=== PATIENT | female | born 1930 | race Caucasian/White ===

== ENCOUNTER → 2016-04-05 | Outpatient (CLI) | payer MEDICARE, BC ==
--- NOTE | 2016-04-05 19:46 | XCELERA REPORT ---
[address] [address] Transthoracic Echocardiogram Report Name: CHRISTIANO PAL Age: 85 yrs Gender: Female : 1930 Patient Status: Outpatient Patient Location: Study Date: 04/05/2016 01:22 PM Height: 62 in Weight: 149 lb BSA: 1.7 m2 Reason For Study: DYSPNEA Ordering Physician: JANAE MONTERO Performed By: William Paulson Interpretation Summary LVEF is >60%, but also has stage I LV diastolic dysfunctioin due to mild LV hypertrophy , with incomplete segmental wall motion abnormalities especially abnormal IVS motion due to conduction abnmormality ,and hypokinesis of the inferoseptal and inferior wall. No LV enlargement. Mild AV sclerosis with trace AR and no LV enlargement.No . No MS, no MVP, trace MR with mild LA enlargement. RVSP is slightly elevated, mild pulm hypertension. MMode/2D Measurements \T\ Calculations RVDd: 2.7 cm LVIDd: 4.8 cm FS: 31.2 % Ao root diam: 2.6 cm IVSd: 1.2 cm LVIDs: 3.3 cm EDV(Teich): 109.2 ml LVPWd: 1.2 cm ESV(Teich): 44.9 ml Ao root area: 5.5 cm2 EF(Teich): 58.8 % LA dimension: 4.2 cm Doppler Measurements \T\ Calculations MV E max duarte: MV P1/2t max duarte: Ao V2 max: AI max duarte: 70.2 cm/sec 70.2 cm/sec 145.1 cm/sec 198.8 cm/sec MV A max duarte: MV P1/2t: 65.5 msec Ao max PG: AI max P.1 cm/sec 8.4 mmHg 15.8 mmHg MV E/A: 0.76 MVA(P1/2t): 3.4 cm2 AI dec slope: MV dec slope: 314.0 cm/sec2 90.5 cm/sec2 MV dec time: AI P1/2t: 0.21 sec 643.2 msec LV V1 max PG: PA V2 max: PI end-d duarte: TR max duarte: 6.7 mmHg 99.3 cm/sec 92.3 cm/sec 287.8 cm/sec LV V1 max: PA max P.9 mmHg TR max P.0 cm/sec 33.1 mmHg RVSP(TR): 43.1 mmHg RAP systole: 10.0 mmHg Left Ventricle The left ventricle is normal in size. There is mild concentric left ventricular hypertrophy. The left ventricular ejection fraction is within normal limits. LV EF is 60%. Doppler measurements suggest impaired left ventricular relaxation, which is associated with grade I/IV or mild diastolic dysfunction. Septal motion is consistent with conduction abnormality. There is no thrombus. Right Ventricle The right ventricle is not well visualized secondary to technical limitations. Atria Right atrium not well visualized secondary to technical limitations. The left atrium is mildly dilated. The interatrial septum is intact with no evidence for an atrial septal defect. Mitral Valve The mitral valve is normal in structure and function. There is no evidence of mitral valve prolapse. There is no mitral valve stenosis. There is a trace to mild amount of mitral regurgitation. Aortic Valve The aortic valve is normal in structure and functions normally. There is no aortic valvular vegetation. There is no aortic valve stenosis. There is a trace amount of aortic regurgitation. Tricuspid Valve The tricuspid is normal in structure and function. There is no tricuspid valve prolapse. There is no tricuspid stenosis. There is a trace or physiologic amount of tricuspid regurgitation. Right ventricular systolic pressure is estimated to be elevated at 30-40mmHg. Pulmonic Valve The pulmonic valve is not well visualized. There is a trace or physiologic amount of pulmonic regurgitation. Great Vessels The aortic root is normal size. Effusions Small pericardial effusion. I WMSI = 1.81 % Normal = 56 Segments Size X - Cannot 2 - 4 - 1-2 small Interpret 1 - Normal Hypokinetic 3 - AkineticDyskinetic 3-5 moderate 5 - 6-14 large Aneurysmal 15-16 diffuse : JANAE MONTERO > Joshua Bear
== END ==
LOC: SP 13:11
PROVIDERS: ATTEND Internal Medicine Pulmonary Disease
DX: R06.00 Dyspnea, unspecified (principal)
CPT/HCPCS: 93306

== ENCOUNTER 2016-04-18 13:59 | Emergency (ER) | payer MEDICARE, BC ==
--- NOTE | 2016-04-18 14:28 | ER Document Report ---
ED Medical Screen (RME) - General Stated Complaint: LEFT SIDE PAIN Time seen by provider: 14:25 Mode of Arrival: Ambulatory Information source: Patient, Relative TRAVEL OUTSIDE OF THE [place] IN LAST 30 DAYS: No - HPI Patient complains to provider of: POSSIBLE LEFT ABD MASS Onset: Just prior to arrival Onset/Duration: Intermittent Context: SENT TO ER BY PCP FOR POSSIBLE LEFT ABD MASS. INTERMITTENT FOR ONE MONTH, WORSE LAST 2-3 DAYS Quality of pain: Achy Severity: Moderate Pain Level: 3 Associated Symptoms: Abdominal pain, Chills, Fever. denies: Diarrhea, Nausea, Vomiting Exacerbated by: Denies Relieved by: Denies Similar symptoms previously: No Recently seen / treated by doctor: Yes - Related Data Smoking: Non-smoker Frequency of alcohol use: None Drug Abuse: None Pertinent History: KIDNEY DISEASE HTN Allergies/Adverse Reactions: acetaminophen [From Tylenol] Allergy (Verified 04/18/16 14:23) prednisone [Prednisone] Allergy (Verified 04/18/16 14:23) Dczokrm-Bql-Sgw Reductase Inhibitor Allergy (Verified 04/18/16 14:23) aspirin [Aspirin] Adverse Reaction (Verified 04/18/16 14:23) ibuprofen Adverse Reaction (Verified 04/18/16 14:23) Past Medical History - Past Medical History Cardiac Medical History: Reports: Hx Hypercholesterolemia, Hx Hypertension Denies: Hx Heart Attack Pulmonary Medical History: Denies: Hx Asthma, Hx Tuberculosis Neurological Medical History: Denies: Hx Cerebrovascular Accident, Hx Seizures GI Medical History: Denies: Hx Hepatitis, Hx Hiatal Hernia, Hx Ulcer Musculoskeltal Medical History: Reports Hx Arthritis Infectious Medical History: Denies: Hx Hepatitis Past Surgical History: Reports: Hx Appendectomy, Hx Cholecystectomy, Hx Hysterectomy, Hx Orthopedic Surgery - bilateral knee replacements, back surgery. Denies: Hx Mastectomy, Hx Open Heart Surgery, Hx Pacemaker - Immunizations Hx Diphtheria, Pertussis, Tetanus Vaccination: No Physical Exam - Vital signs Vitals: Temp Pulse Resp BP Pulse Ox 98.1 F 84 16 113/64 94 04/18/16 14:07 04/18/16 14:07 04/18/16 14:07 04/18/16 14:07 04/18/16 14:07 Course - Vital Signs Vital signs: Temp Pulse Resp BP Pulse Ox 98.1 F 84 16 113/64 94 04/18/16 14:07 04/18/16 14:07 04/18/16 14:07 04/18/16 14:07 04/18/16 14:07
[2016-04-18 14:58] LABS: ABSOLUTE EOSINOPHILS # (AUTO) 0.1 10^3/uL (0.0-0.6); ABSOLUTE LYMPHOCYTES (AUTO) 0.8 10^3/uL (0.5-4.7); ABSOLUTE MONOCYTES (AUTO) 0.6 10^3/uL (0.1-1.4); ABSOLUTE NEUT (AUTO) 2.2 10^3/uL (1.7-8.2); BASOPHILS % (AUTO) 0.8 % (0-2); EOSINOPHILS % (AUTO) 1.8 % (0-6); HEMATOCRIT 36.4 % (36.0-47.0); HEMOGLOBIN 12.3 g/dL (12.0-15.5); HGB HCT DIFFERENCE 0.5; LYMPHOCYTES % (AUTO) 22.8 % (13-45); MEAN CORPUSCULAR HEMOGLOBIN 29.7 pg (27.0-33.4); MEAN CORPUSCULAR HGB CONC 33.8 g/dL (32.0-36.0); MEAN CORPUSCULAR VOLUME 88 fl (80-97); MONOCYTES % (AUTO) 15.3 % (3-13); RED BLOOD COUNT 4.14 10^6/uL (3.72-5.28); RED CELL DISTRIBUTION WIDTH 13.6 % (11.5-14.0); SEGMENTED NEUTROPHILS % (AUTO) 59.3 % (42-78); WHITE BLOOD COUNT 3.7 10^3/uL (4.0-10.5)
[2016-04-18 15:03] LABS: PROTHROMBIN TIME 28.9 SEC (11.4-15.4)
[2016-04-18 15:11] LABS: ALANINE AMINOTRANSFERASE 25 U/L (9-52); ALBUMIN 3.8 g/dL (3.5-5.0); ALKALINE PHOSPHATASE 53 U/L (38-126); ANION GAP 11 (5-19); ASPARTATE AMINO TRANSFERASE 28 U/L (14-36); BILIRUBIN,TOTAL 0.5 mg/dL (0.2-1.3); BLOOD UREA NITROGEN 28 mg/dL (7-20); CALCIUM 10.1 mg/dL (8.4-10.2); CARBON DIOXIDE 26 mmol/L (22-30); CHLORIDE 102 mmol/L (98-107); CREATININE RESULT 1.56 mg/dL (0.52-1.25); GLUCOSE 87 mg/dL (75-110); LIPASE 325.1 U/L (23-300); POTASSIUM 5.3 mmol/L (3.6-5.0); SODIUM 139.2 mmol/L (137-145); TOTAL PROTEIN 7.3 g/dL (6.3-8.2)
--- NOTE | 2016-04-18 18:20 | ER Document Report ---
ED GI/ <CATE VEGA - Last Filed: 04/18/16 20:14> - General Time seen by provider: 18:14 Mode of Arrival: Ambulatory Information source: Patient TRAVEL OUTSIDE OF THE [place] IN LAST 30 DAYS: No - HPI Patient complains to provider of: Abdominal pain Onset: Other - A month, worse for the last 2-3 days Timing/Duration: Gradual, Worse Quality of pain: Achy Severity at maximum: Severe Severity in ED: Moderate Pain Level: 3 Location: Left flank Vaginal bleeding (Compared to normal period): None Associated symptoms: Chills, Fever. denies: Nausea, Vomiting Exacerbated by: Movement Relieved by: Denies Similar symptoms previously: Yes Recently seen / treated by doctor: Yes <RUBY DAY - Last Filed: 04/18/16 20:33> - General Chief Complaint: Abdominal Pain >50 Stated Complaint: LEFT SIDE PAIN Notes: 85-year-old female presents to ED for left abdominal pain. Her family and her state that she was sent over here by her PCP for possible left abdominal mass with pain for the last month worse for the last 2-3 days. They state that she has kidney failure and is not allowed to have any contrast IV or oral all. I spoke with Dr. Rios and she stated to do the CT with no contrast. (RUBY DAY) - Related Data Allergies/Adverse Reactions: acetaminophen [From Tylenol] Allergy (Verified 04/18/16 14:23) prednisone [Prednisone] Allergy (Verified 04/18/16 14:23) Xfrzucs-Xpm-Njl Reductase Inhibitor Allergy (Verified 04/18/16 14:23) aspirin [Aspirin] Adverse Reaction (Verified 04/18/16 14:23) ibuprofen Adverse Reaction (Verified 04/18/16 14:23) Past Medical History - General Information source: Patient, Relative - Social History Smoking Status: Never Smoker Chew tobacco use (# tins/day): No Frequency of alcohol use: None Drug Abuse: None Lives with: Family Family History: Reviewed & Not Pertinent Patient has suicidal ideation: No Patient has homicidal ideation: No - Past Medical History Cardiac Medical History: Reports: Hx Hypercholesterolemia, Hx Hypertension Pulmonary Medical History: Reports: Hx COPD - new diagnosis EENT Medical History: Reports: None Neurological Medical History: Reports: None Endocrine Medical History: Reports: None Renal/ Medical History: Reports: None Malignancy Medical History: Reports: None GI Medical History: Reports: None Musculoskeltal Medical History: Reports Hx Arthritis Skin Medical History: Reports None Psychiatric Medical History: Reports: None Traumatic Medical History: Reports: None Infectious Medical History: Reports: None Past Surgical History: Reports: Hx Appendectomy, Hx Cholecystectomy, Hx Hysterectomy, Hx Orthopedic Surgery - bilateral knee replacements, back surgery - Immunizations Hx Diphtheria, Pertussis, Tetanus Vaccination: No Hx Pneumococcal Vaccination: 03/19/09 <RUBY DAY - Last Filed: 04/18/16 20:33> Review of Systems - Review of Systems Constitutional: Chills, Fever EENT: No symptoms reported Cardiovascular: No symptoms reported Respiratory: No symptoms reported Gastrointestinal: Abdominal pain Genitourinary: No symptoms reported Female Genitourinary: No symptoms reported Musculoskeletal: No symptoms reported Skin: No symptoms reported Hematologic/Lymphatic: No symptoms reported Neurological/Psychological: No symptoms reported <RUBY DAY Last Filed: 04/18/16 20:33> Physical Exam - Vital signs Interpretation: Normal - General General appearance: Appears well, Alert - HEENT Head: Normocephalic, Atraumatic Eyes: Normal Pupils: PERRL - Respiratory Respiratory status: No respiratory distress Chest status: Nontender Breath sounds: Normal Chest palpation: Normal - Cardiovascular Rhythm: Regular Heart sounds: Normal auscultation Murmur: No - Abdominal Inspection: Normal Distension: No distension Bowel sounds: Normal Tenderness: Tender - Left midabdomen Organomegaly: No organomegaly - Back Back: Normal, Nontender - Extremities General upper extremity: Normal inspection, Nontender, Normal color, Normal ROM , Normal temperature General lower extremity: Normal inspection, Nontender, Normal color, Normal ROM , Normal temperature, Normal weight bearing. No: Kyle's sign - Neurological Neuro grossly intact: Yes Cognition: Normal Orientation: AAOx4 [place] Coma Scale Eye Opening: Spontaneous [place] Coma Scale Verbal: Oriented [place] Coma Scale Motor: Obeys Commands [place] Coma Scale Total: 15 Speech: Normal Motor strength normal: LUE, RUE, LLE, RLE Sensory: Normal - Psychological Associated symptoms: Normal affect, Normal mood - Skin Skin Temperature: Warm Skin Moisture: Dry Skin Color: Normal <RUBY DAY Last Filed: 01/31/17 20:33> - Vital signs Vitals: Temp Pulse Resp BP Pulse Ox 98.1 F 84 16 113/64 94 04/18/16 14:07 04/18/16 14:07 04/18/16 14:07 04/18/16 14:07 04/18/16 14:07 (CATE VEGA) (RUBY DAY) Course - Laboratory Result Diagrams: 04/18/16 14:35 04/18/16 14:35 <CATE VEGA - Last Filed: 04/18/16 20:14> - Laboratory Result Diagrams: 04/18/16 14:35 04/18/16 14:35 - Diagnostic Test Radiology reviewed: Image reviewed, Reports reviewed <RUBY DAY - Last Filed: 04/18/16 20:33> - Re-evaluation Re-evalutation: 04/18/16 20:14 Asked to see patient at the bedside abnormal CT scan. Patient has been having abdominal pain for over a month visiting her primary care physician today and he said to go to the ER for a CT scan initially order was placed for routine labs and CT IV contrast family was reluctant to want the IV contrast due to the nature of her having renal insufficiency. CT without contrast is done and noted a mass. On examination patient is well-appearing nontoxic no intractable pain vomiting fever altered mental status or abnormal lab findings. Spoke with the on -call surgeon she will need an outpatient CT contrast scan and further evaluation and assessment or pressure to by her primary care physician to evaluate further this mass and recommendations for plan of treatment. Patient does not need to be admitted emergently to the hospital. She can have the scan done as an outpatient with renal protocol and hydration. Patient does not want stay in the hospital tonight does not require an inpatient workup tonight nor does she have a surgical abdomen. Extensive discussion with the family at the bedside as well as speaking with the on-call surgeon Dr. RODRÍGUEZ. Patient will follow up with primary care physician tomorrow plan is to order an outpatient CT with contrast and orchestrate the further evaluation and disposition per the primary care physician struck it on reasons for ED return sooner (CATE VEGA) 04/18/16 19:[address] and labs with Dr. Vega and Dr. Muir the surgeon, patient will be discharged home for outpatient follow-up. Patient will need a IV contrasted CT to further diagnose this mass. Dr. Vega discussed with the patient and family the follow-up procedure and the need to follow up promptly with her primary doctor. Her primary doctor will need to coordinate a IV contrasted CT and appointments with her kidney doctor and oncology. 04/18/16 20:33 (RUBY DAY) - Vital Signs Vital signs: Temp Pulse Resp BP Pulse Ox 98.2 F 77 18 162/88 H 95 04/18/16 20:02 04/18/16 20:02 04/18/16 18:36 04/18/16 20:02 04/18/16 20:02 (CATE VEGA) (RUBY DAY) - Laboratory Laboratory results interpreted by ca: 04/18/16 04/18/16 04/18/16 14:35 14:35 14:35 WBC 3.7 L Monocytes % 15.3 H PT 28.9 H Potassium 5.3 H BUN 28 H Creatinine 1.56 H Est GFR ( Amer) 38 L Est GFR (Non-Af Amer) 31 L Lipase 325.1 H (CATE VEGA) (RUBY DAY) Discharge <CATE VEGA - Last Filed: 04/18/16 20:14> <RUBY DAY - Last Filed: 04/18/16 20:33> - Discharge Clinical Impression: Left upper quadrant abdominal mass Abdominal pain Qualifiers: Abdominal location: left upper quadrant Qualified Code(s): R10.12 - Left upper quadrant pain Condition: Stable Disposition: HOME, SELF-CARE Additional Instructions: ABDOMINAL PAIN: There are many causes of abdominal pain. Pain can mean a serious problem requiring surgery (such as appendicitis). It can also be an innocent problem that goes away on its own (such as a viral infection). Often, time must pass to determine the cause of pain. The physician does not feel that hospitalization is necessary, at present. Things may change within the next 24 hours. Call the doctor or come back for re- examination if any problems occur, such as: (1) Pain that becomes more severe, steady, or becomes concentrated in one specific area. Also, pain that is more severe with movement or coughing. (2) Vomiting that persists or becomes more frequent. (3) Blood in the vomitus, urine, or bowel movements. Blood in the stool may have a tarry or black appearance. (4) Shaking chills or fever greater than 100 degrees F. (5) The abdomen becomes more distended or swollen. (6) Bowel movements cease. (7) Failure to improve as expected. Please continue your pain medicine for your abdominal pain that you have from your primary doctor. This CT shows a 10.6 cm mass on the left abdomen. A copy of your CD result and a CD of your CT were sent home with you for follow-up with your primary doctor. A copy of your lab results were sent with you also for follow-up. You will need to follow-up with your primary doctor by telephone or visit tomorrow to schedule follow-up for this large mass. FOLLOW-UP CARE: If you have been referred to a physician for follow-up care, call the physician s office for an appointment as you were instructed or within the next two days. If you experience worsening or a significant change in your symptoms, notify the physician immediately or return to the Emergency Department at any time for re-evaluation. Referrals: CHARLI GILL MD [Primary Care Provider] - Follow up tomorrow
[2016-04-18 20:07] VITALS: BP 162/88
== END 2016-04-18 20:08 | disposition home or self-care (01) ==
LOC: ER 13:59
DX: R19.02 Left upper quadrant abdominal swelling, mass and lump (principal); R10.12 Left upper quadrant pain; R50.9 Fever, unspecified; N19 Unspecified kidney failure; I10 Essential (primary) hypertension; J44.9 Chronic obstructive pulmonary disease, unspecified; Z88.6 Allergy status to analgesic agent; Z88.8 Allergy status to other drugs, medicaments and biological substances
CPT/HCPCS: 36415; 74176; 80053; 83690; 85025; 85610; 99284

== ENCOUNTER 2016-06-16 22:20 | Emergency (ER) | payer MEDICARE, BC ==
[2016-06-17] MEDS ORDERED: FENTANYL CITRATE INJ/PF 100 MCG/2 ML AMPUL IV ONE (00:41)
--- NOTE | 2016-06-17 00:45 | ER Document Report ---
ED General - General Chief Complaint: Low Back Pain Stated Complaint: SEVERE BACK PAIN Notes: Patient is a 85-year-old female presents with complaint of severe back pain. She has long history of spinal stenosis and chronic back issues. She does see pain management. She will pain management today and says that her pain was about 6 out of 10 but was manageable. As the day went on her pain got worse and now is intolerable and therefore came to the ER. She did take 5 mg of oxycodone at 5 PM as well as at 8 PM. She does have a fentanyl patch on. She also took some Tylenol. She denies any pain radiating into legs. None seen anesthesia. No loss of bowel control. No urinary retention. No recent fevers or infections. She is on Coumadin due to a blood clot in her leg. She denies abdominal pain. No other complaints at this time. She points at her lumbosacral junction as the source of her pain. She says she feels as there spasms along her lower back that shoot up her back. TRAVEL OUTSIDE OF THE [place] IN LAST 30 DAYS: No - Related Data Allergies/Adverse Reactions: aspirin [Aspirin] Adverse Reaction (Verified 06/16/16 22:51) ibuprofen Adverse Reaction (Verified 06/16/16 22:51) Past Medical History - Social History Smoking Status: Never Smoker Chew tobacco use (# tins/day): No Frequency of alcohol use: None Drug Abuse: None Family History: Reviewed & Not Pertinent - Past Medical History Cardiac Medical History: Reports: Hx Hypercholesterolemia, Hx Hypertension Denies: Hx Heart Attack Pulmonary Medical History: Reports: Hx COPD - new diagnosis Denies: Hx Asthma, Hx Tuberculosis Neurological Medical History: Denies: Hx Cerebrovascular Accident, Hx Seizures Renal/ Medical History: Denies: Hx Peritoneal Dialysis GI Medical History: Denies: Hx Hepatitis, Hx Hiatal Hernia, Hx Ulcer Musculoskeltal Medical History: Reports Hx Arthritis Infectious Medical History: Denies: Hx Hepatitis Past Surgical History: Reports: Hx Appendectomy, Hx Cholecystectomy, Hx Hysterectomy, Hx Orthopedic Surgery - bilateral knee replacements, back surgery. Denies: Hx Mastectomy, Hx Open Heart Surgery, Hx Pacemaker - Immunizations Hx Diphtheria, Pertussis, Tetanus Vaccination: No Hx Pneumococcal Vaccination: 03/19/09 Review of Systems - Review of Systems Notes: My Normal Review Basic REVIEW OF SYSTEMS: CONSTITUTIONAL : Denies fever, chills, or sweats. Denies recent illness. RESPIRATORY: Denies cough, cold, or chest congestion. Denies shortness of breath, difficulty breathing, or wheezing. GASTROINTESTINAL: Denies abdominal pain. Denies nausea, vomiting, or diarrhea. Denies constipation. Last BM: GENITOURINARY: Denies difficulty urinating, painful urination, burning, frequency, or blood in urine. MUSCULOSKELETAL: Back pain SKIN: Denies rash or skin lesions. HEMATOLOGIC : On Coumadin NEUROLOGICAL: Denies altered mental status or loss of consciousness. Denies headache. Denies weakness or paralysis or loss of use of either side. Denies problems with gait or speech. Denies sensory or motor loss. ALL OTHER SYSTEMS REVIEWED AND NEGATIVE. Physical Exam - Vital signs Vitals: Temp Pulse Resp BP Pulse Ox 97.5 F 87 18 134/58 H 96 06/16/16 22:28 06/16/16 22:28 06/16/16 22:28 06/16/16 22:28 06/16/16 22:28 - Notes Notes: General Appearance: Well nourished, alert, cooperative, no acute distress, moderate to severe obvious discomfort. Vitals: reviewed, See vital signs table. Eyes: PERRL, EOMI, Conjuctiva clear Mouth: No decreasd moisture Lungs: No wheezing, No rales, No rhonci, No accessory muscle use, good air exchange bilaterally. Heart: Normal rate, Regular rythm, No murmur, no rub Abdomen: Normal BS, soft, No rigidity, No abdominal tenderness to palpation, No guarding, no rebound, no abdominal masses, no organomegaly Back: Mild tenderness to palpation at the lumbosacral junction. Extremities: strength 5/5 in all extremities, good pulses in all extremities, no swelling or tenderness in the extremities, no edema. Skin: warm, dry, appropriate color, no rash Neuro: speech clear, oriented x 3, normal affect, responds appropriately to questions. Good strength in both extremities. Good strength with plantar and dorsiflexion. Good distal sensation. Course - Re-evaluation Re-evalutation: 06/17/16 02:49 Patient is feeling improved. At this time the family wants to wait to morning time before going home to make sure she continues to be improved. We'll continue to monitor her and recheck her in the morning to make sure she is to be discharged home. - Vital Signs Vital signs: Temp Pulse Resp BP Pulse Ox 97.5 F 87 18 134/58 H 96 06/16/16 22:28 06/16/16 22:28 06/16/16 22:28 06/16/16 22:28 06/16/16 22:28 - Laboratory Laboratory results interpreted by me: 06/17/16 01:40 PT 19.4 H - Transfer of Care Notes: 06/17/16 05:38 Patient's back pain was relieved with one extra dose of fentanyl. I did allow the patient and her family stay is rest and night and I rechecked this morning and her pain continued to be improved. She looks well. She never had any signs of central cord impingement. She never had any leg weakness or numbness. She never had also bowel control or urinary retention. She never had saddle anesthesia. Patient's INR is a little subtherapeutic. I did inform them of this. I encouraged him to take Coumadin as prescribed and to follow up on Sunday to have her INR level rechecked see if it is back within normal range. Patient and family are agreeable to plan and she will be discharged home. Dictation of this chart was performed using voice recognition software; therefore, there may be some unintended grammatical errors. 06/17/16 05:42 Discharge - Discharge Clinical Impression: Back pain Qualifiers: Back pain location: low back pain Chronicity: chronic Back pain laterality: bilateral Sciatica presence: without sciatica Qualified Code(s): M54.5 - Low back pain; G89.29 - Other chronic pain Condition: Good Disposition: HOME, SELF-CARE Additional Instructions: LOW BACK PAIN: Three out of every four people will have an episode of disabling back pain during their lifetime. Most commonly the pain is due to straining of the muscles and ligaments in the low back. Usual treatment includes: (1) Rest on a firm surface. Avoid lying on your stomach. (2) Ice pack the painful area. After a few days, gentle heat may be used intermittently to relax the area, or ice packs can be continued. (3) Medication may be needed -- muscle relaxers and antiinflammatory medicines are commonly used. (4) As the back improves, exercises are prescribed to strengthen the back and abdominal muscles. Your doctor will advise you on the proper care for your back at each stage in your recovery. You may be better in a few days -- or healing may take several weeks. If new symptoms of a "herniated disc" (radiation of pain, numbness, or tingling down the back of the leg or weakness in the leg) occur, you should be re-examined. Further testing may be necessary. FOLLOW-UP CARE: If you have been referred to a physician for follow-up care, call the physician s office for an appointment as you were instructed or within the next two days. If you experience worsening or a significant change in your symptoms, notify the physician immediately or return to the Emergency Department at any time for re-evaluation. Please follow up closely with your primary care physician on Sunday for close reevaluation and also for recheck of your INR. Please continue to take your coumadin as directed. Your INR tonight was a little low, but these levels do fluctuate so please have it rechecked by your doctor to make sure you are getting back into therapeutic range. Please return to the ER immediately if you have worsening pain, leg weakness or numbness, inability to urinate, or loss of control of your bowel function. Referrals: CHARLI GILL MD [Primary Care Provider] - 06/19/16
[2016-06-17 02:15] LABS: PROTHROMBIN TIME 19.4 SEC (11.4-15.4)
[2016-06-17 06:06] VITALS: BP 123/82
== END 2016-06-17 05:51 | disposition home or self-care (01) ==
LOC: ER 22:20
DX: G89.29 Other chronic pain (principal); M54.5 Low back pain; M48.00 Spinal stenosis, site unspecified; Z79.891 Long term (current) use of opiate analgesic; I82.409 Acute embolism and thrombosis of unspecified deep veins of unspecified lower extremity; Z79.01 Long term (current) use of anticoagulants; I10 Essential (primary) hypertension; J44.9 Chronic obstructive pulmonary disease, unspecified; Z98.890 Other specified postprocedural states
CPT/HCPCS: 99283; 96374; 36415; 85610; J3010

== ENCOUNTER → 2016-11-23 | Outpatient (CLI) | payer MEDICARE, BC ==
[2016-11-23 12:53] LABS: PROTHROMBIN TIME 15.3 SEC (11.4-15.4)
[2016-11-23 12:54] LABS: PARTIAL THROMBOPLASTIN TIME 28.1 SEC (23.5-35.8)
== END ==
LOC: OD 11:27
PROVIDERS: ATTEND Pain Medicine Interventional Pain Medicine
DX: Z79.01 Long term (current) use of anticoagulants (principal); Z79.02 Long term (current) use of antithrombotics/antiplatelets
CPT/HCPCS: 36415; 85610; 85730

== ENCOUNTER 2017-02-04 19:43 | Emergency (ER) | payer MEDICARE, BC ==
--- NOTE | 2017-02-04 20:22 | ER Document Report ---
ED Medical Screen (RME) - General Chief Complaint: Chest Pain Stated Complaint: CHEST PAIN Time Seen by Provider: 02/04/17 20:19 Mode of Arrival: Wheelchair Information source: Patient, Relative TRAVEL OUTSIDE OF THE [place] IN LAST 30 DAYS: No - HPI Patient complains to provider of: CP Onset: This afternoon - pt with history of NHL with onset of L-sided CP earlier this evening. She states pain is somewhat better now. She is allergic to ASA. Denies SOB - Related Data Allergies/Adverse Reactions: aspirin [Aspirin] Adverse Reaction (Verified 06/16/16 22:51) ibuprofen Adverse Reaction (Verified 06/16/16 22:51) Past Medical History - Past Medical History Cardiac Medical History: Reports: Hx Hypercholesterolemia, Hx Hypertension Denies: Hx Heart Attack Pulmonary Medical History: Reports: Hx COPD - new diagnosis Denies: Hx Asthma, Hx Tuberculosis Neurological Medical History: Denies: Hx Cerebrovascular Accident, Hx Seizures Renal/ Medical History: Denies: Hx Peritoneal Dialysis GI Medical History: Denies: Hx Hepatitis, Hx Hiatal Hernia, Hx Ulcer Musculoskeltal Medical History: Reports Hx Arthritis Infectious Medical History: Denies: Hx Hepatitis Past Surgical History: Reports: Hx Appendectomy, Hx Cholecystectomy, Hx Hysterectomy, Hx Orthopedic Surgery - bilateral knee replacements, back surgery. Denies: Hx Mastectomy, Hx Open Heart Surgery, Hx Pacemaker - Immunizations Hx Diphtheria, Pertussis, Tetanus Vaccination: No Physical Exam - Vital signs Vitals: Temp Pulse Resp BP Pulse Ox 99.5 F 102 H 17 124/67 94 02/04/17 20:07 02/04/17 20:07 02/04/17 20:07 02/04/17 20:07 02/04/17 20:07 Course - Vital Signs Vital signs: Temp Pulse Resp BP Pulse Ox 99.5 F 102 H 17 124/67 94 02/04/17 20:07 02/04/17 20:07 02/04/17 20:07 02/04/17 20:07 02/04/17 20:07
--- NOTE | 2017-02-04 20:40 | ER Document Report ---
ED General - General Chief Complaint: Chest Pain Stated Complaint: CHEST PAIN Time Seen by Provider: 02/04/17 20:19 Mode of Arrival: Wheelchair Information source: Patient TRAVEL OUTSIDE OF THE [place] IN LAST 30 DAYS: No - HPI Onset: Last week Onset/Duration: Constant, Waxing and waning, Worse - YESTERDAY Quality of pain: Achy - MOSTLY, Sharp - SOMETIMES Severity: Severe Associated symptoms: Chest pain, Nausea, Shortness of breath, Other - L. ABD PAIN. denies: Chills, Nonproductive cough, Productive cough, Fever, Leg swelling Exacerbated by: Deep breathing Relieved by: Denies Similar symptoms previously: Yes - MUCH MILDER Recently seen / treated by doctor: Yes - [facility]. 3 WKS. AGO - Related Data Allergies/Adverse Reactions: aspirin [Aspirin] Adverse Reaction (Verified 06/16/16 22:51) ibuprofen Adverse Reaction (Verified 06/16/16 22:51) Past Medical History - General Information source: Patient, Relative - Social History Smoking Status: Never Smoker Chew tobacco use (# tins/day): No Frequency of alcohol use: None Drug Abuse: None Lives with: Family Family History: Reviewed & Not Pertinent Patient has suicidal ideation: No Patient has homicidal ideation: No - Past Medical History Cardiac Medical History: Reports: Hx Hypercholesterolemia, Hx Hypertension Denies: Hx Heart Attack Pulmonary Medical History: Reports: Hx COPD - new diagnosis Denies: Hx Asthma, Hx Tuberculosis Neurological Medical History: Denies: Hx Cerebrovascular Accident, Hx Seizures Renal/ Medical History: Denies: Hx Peritoneal Dialysis Malignancy Medical History: 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 Denies: Hx Hepatitis, Hx Hiatal Hernia, Hx Ulcer Musculoskeltal Medical History: Reports Hx Arthritis Skin Medical History: Reports None Psychiatric Medical History: Reports: None Infectious Medical History: Denies: Hx Hepatitis Past Surgical History: Reports: Hx Appendectomy, Hx Cholecystectomy, Hx Hysterectomy, Hx Orthopedic Surgery - bilateral knee replacements, back surgery. Denies: Hx Mastectomy, Hx Open Heart Surgery, Hx Pacemaker - Immunizations Hx Diphtheria, Pertussis, Tetanus Vaccination: No Hx Pneumococcal Vaccination: 03/19/09 Review of Systems - Review of Systems Constitutional: No symptoms reported EENT: No symptoms reported Cardiovascular: Chest pain Respiratory: See HPI, Short of breath - DUE TO PAIN Gastrointestinal: See HPI Genitourinary: No symptoms reported Female Genitourinary: Post menopausal Musculoskeletal: No symptoms reported Skin: No symptoms reported Neurological/Psychological: No symptoms reported Physical Exam - Vital signs Vitals: Temp Pulse Resp BP Pulse Ox 99.5 F 102 H 17 124/67 94 02/04/17 20:07 02/04/17 20:07 02/04/17 20:07 02/04/17 20:07 02/04/17 20:07 Interpretation: Tachycardic. No: Hypotensive, Tachypneic, Febrile - General General appearance: Appears well, Alert In distress: None - HEENT Head: Normocephalic Eyes: Normal Conjunctiva: Normal Ears: Normal Nasal: Normal Mouth/Lips: Normal Mucous membranes: Normal Pharynx: Normal Neck: Normal - Respiratory Respiratory status: No respiratory distress Chest status: Nontender Breath sounds: Decreased air movement - LEFT LOWER. No: Rales, Rhonchi, Wheezing - Cardiovascular Rhythm: Regular, Tachycardia Heart sounds: Normal auscultation Murmur: No - Abdominal Inspection: Normal Distension: No distension Tenderness: Tender - LEFT U. Q. Organomegaly: Splenomegaly - Extremities General upper extremity: Normal inspection General lower extremity: Normal inspection. No: Tender, Edema - Neurological Neuro grossly intact: Yes Cognition: Normal Orientation: AAOx4 - Psychological Associated symptoms: Normal affect, Normal mood - Skin Skin Temperature: Warm Skin Moisture: Dry Skin Color: Normal Skin Turgor: Elastic Course - Re-evaluation Re-evalutation: 02/05/17 04:27 Late entry: Reevaluation immediately before patient's departure is unremarkable. She has no new complaints. She states the pain is still present but tolerable. Vital signs are satisfactory. She is stable for transport. - Vital Signs Vital signs: Temp Pulse Resp BP Pulse Ox 98.9 F 102 H 20 131/73 H 93 02/05/17 02:31 02/04/17 20:07 02/05/17 02:31 02/05/17 02:31 02/05/17 02:31 - Laboratory Result Diagrams: 02/04/17 21:09 02/04/17 21:09 Laboratory results interpreted by me: 02/04/17 02/04/17 02/04/17 21:09 21:09 21:09 RBC 3.66 L Hgb 11.0 L Hct 32.3 L RDW 17.1 H Plt Count 126 L Band Neutrophils % 1 L Monocytes % (Manual) 14 H PT BUN 21 H Est GFR ( Amer) 51 L Est GFR (Non-Af Amer) 42 L Direct Bilirubin 0.5 H AST 62 H Creatine Kinase < 20 L Total Protein 5.1 L Albumin 3.3 L Ur Leukocyte Esterase SMALL H 02/04/17 21:09 RBC Hgb Hct RDW Plt Count Band Neutrophils % Monocytes % (Manual) PT 26.0 H BUN Est GFR ( Amer) Est GFR (Non-Af Amer) Direct Bilirubin AST Creatine Kinase Total Protein Albumin Ur Leukocyte Esterase - Diagnostic Test Radiology reviewed: Image reviewed, Reports reviewed - EKG Interpretation by Me EKG shows normal: Sinus rhythm Rate: Normal Rhythm: NSR When compared to previous EKG there are: No significant change - Consults DR. JOY Time consulted: 23:42 Reason for consultation: 02/05/17 00:43 AGREES WITH TRANSFER, CONTACT HOSPITALIST TO ACCEPT DR. 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
--- NOTE | 2017-02-04 21:44 | RADIOLOGY REPORT (SQ) ---
EXAM DESCRIPTION: CHEST PA/LAT COMPLETED DATE/TIME: 02/04/2017 9:36 pm REASON FOR STUDY: CP COMPARISON: February 2016 EXAM PARAMETERS: NUMBER OF VIEWS: two views TECHNIQUE: Digital Frontal and Lateral radiographic views of the chest acquired. RADIATION DOSE: NA LIMITATIONS: none FINDINGS: LUNGS AND PLEURA: No opacities, masses or pneumothorax. No pleural effusion. MEDIASTINUM AND HILAR STRUCTURES: No masses or contour abnormalities. HEART AND VASCULAR STRUCTURES: The configuration of the heart mediastinal structures is unchanged. BONES: No acute findings. HARDWARE: Port-A-Cath is identified with its tip the level of the superior vena cava. OTHER: No other significant finding. IMPRESSION: No significant interval change. Findings as noted above TECHNICAL DOCUMENTATION: JOB ID: [id number] [employer]- All Rights Reserved
[2017-02-04 21:46] LABS: ALANINE AMINOTRANSFERASE 29 U/L (9-52); ALBUMIN 3.3 g/dL (3.5-5.0); ALKALINE PHOSPHATASE 62 U/L (38-126); ANION GAP 8 (5-19); ASPARTATE AMINO TRANSFERASE 62 U/L (14-36); BILIRUBIN,DIRECT 0.5 mg/dL (0.0-0.4); BILIRUBIN,TOTAL 0.5 mg/dL (0.2-1.3); BLOOD UREA NITROGEN 21 mg/dL (7-20); CALCIUM 8.9 mg/dL (8.4-10.2); CARBON DIOXIDE 28 mmol/L (22-30); CHLORIDE 102 mmol/L (98-107); CREATINE KINASE < 20 U/L (30-135); GLUCOSE 104 mg/dL (75-110); POTASSIUM 4.4 mmol/L (3.6-5.0); SODIUM 138.2 mmol/L (137-145); TOTAL PROTEIN 5.1 g/dL (6.3-8.2)
[2017-02-04 21:56] LABS: HEMATOCRIT 32.3 % (36.0-47.0); HGB HCT DIFFERENCE 0.7; MEAN CORPUSCULAR VOLUME 88 fl (80-97); RED BLOOD COUNT 3.66 10^6/uL (3.72-5.28); RED CELL DISTRIBUTION WIDTH 17.1 % (11.5-14.0); WHITE BLOOD COUNT 5.9 10^3/uL (4.0-10.5)
[2017-02-04 21:57] LABS: APPEARANCE,URINE CLEAR; BILIRUBIN,URINE NEGATIVE (NEGATIVE); CREATINE KINASE MB 0.31 ng/mL (<4.55); GLUCOSE, URINE NEGATIVE (NEGATIVE); KETONES,URINE NEGATIVE (NEGATIVE); LEUKOCYTE ESTERASE,URINE SMALL (NEGATIVE); NITRITE,URINE NEGATIVE (NEGATIVE); PROTEIN,URINE NEGATIVE (NEGATIVE); TROPONIN I 0.026 ng/mL; URINE SPECIFIC GRAVITY 1.019; UROBILINOGEN,URINE NEGATIVE mg/dL (<2.0)
[2017-02-04] MEDS ORDERED: OXYCODONE HCL IR 5 MG TABLET PO ONE (22:19)
[2017-02-04] MEDS ORDERED: ONDANSETRON 4 MG TAB.RAPDIS PO ONE (22:19)
[2017-02-04 22:20] LABS: BAND NEUTROPHILS % (MANUAL) 1 % (3-5); BASOPHILS % (MANUAL) 0 % (0-2); EOSINOPHILS % (MANUAL) 5 % (0-6); LYMPHOCYTES % (MANUAL) 30 % (13-45); TOTAL CELLS COUNTED 100
[2017-02-04 22:22] LABS: ANISOCYTOSIS 1+; POLYCHROMASIA SLIGHT; STOMATOCYTES SLIGHT
--- NOTE | 2017-02-04 23:16 | RADIOLOGY REPORT (SQ) ---
EXAM DESCRIPTION: CT ABD/PELVIS NO ORAL OR IV COMPLETED DATE/TIME: 02/04/2017 10:45 pm REASON FOR STUDY: ABD. PAIN, SPLENOMEGALY, H/O NON-HODGKINS LYMPHOMA COMPARISON: March 2016 TECHNIQUE: CT scan of the abdomen and pelvis performed without intravenous or oral contrast. Images reviewed with lung, soft tissue, and bone windows. Reconstructed coronal and sagittal MPR images revi ewed. All images stored on PACS. All CT scanners at this facility use dose modulation, iterative reconstruction, and/or weight based d osing when appropriate to reduce radiation dose to as low as reasonably achievable (ALARA). [facility]: Dose Right [facility]: CareDose [facility]: Dose Right [facility]: Teradose 4D [facility]: [employer] RADIATION DOSE: Up-to-date CT equipment and radiation dose reduction techniques were employed. CTDIv ol: 6.8 mGy. DLP: 339 mGy-cm.mGy. LIMITATIONS: None. FINDINGS: LOWER CHEST: Tiny left pleural effusion is identified. NON-CONTRASTED LIVER, ADRENALS: Evaluation limited by lack of IV contrast. No identified significant masses. PANCREAS: The pancreas is not well evaluated due to the adjacent left upper quadrant mass. GALLBLADDER: Status post cholecystectomy RIGHT KIDNEY AND URETER: No suspicious masses. Assessment limited by lack of IV contrast. No signif icant calcifications. No hydronephrosis or hydroureter. LEFT KIDNEY AND URETER: The previously described relative high density mass appears stable. Assessmen t limited by lack of IV contrast. No significant calcifications. No hydronephrosis or hydroureter . AORTA AND RETROPERITONEUM: No aneurysm. No retroperitoneal masses or adenopathy. BOWEL AND PERITONEAL CAVITY: The previously described large left upper quadrant mass is again identif ied and is difficult to measure due to its proximity to the stomach and spleen but appears slightly l arger. Multiple colonic diverticula are identified in the sigmoid colon without CT evidence for dive rticulitis APPENDIX: Status post appendectomy PELVIS, BLADDER, AND ABDOMINAL WALL:No abnormal masses. No free fluid. Bladder normal. BONES: Stable appearance as compared to the previous study OTHER: Vena cava filter is identified. IMPRESSION: The previously described large left upper quadrant mass is again identified and is diffi cult to measure due to its proximity to the stomach in spleen but appears slightly larger. Other fin dings as noted above COMMENT: Quality ID # [id number]: Final reports with documentation of one or more dose reduction techniques (e.g., Automated exposure control, adjustment of the mA and/or kV according to patient size, use of iterative reconstruction technique) TECHNICAL DOCUMENTATION: JOB ID: [id number] [employer]- All Rights Reserved
[2017-02-05] MEDS ORDERED: GABAPENTIN 100 MG CAPSULE PO ONE (00:29)
[2017-02-05] MEDS ORDERED: LANSOPRAZOLE 30 MG TAB.RAP.DR PO ONE (00:29)
[2017-02-05 02:46] VITALS: BP 131/73
[2017-02-05] MEDS ORDERED: WARFARIN SODIUM 4 MG TABLET PO SCH (03:00)
[2017-02-05] MEDS ORDERED: WARFARIN SODIUM 4 MG TABLET ONE (03:07)
--- NOTE | 2017-02-05 09:09 | EKG REPORT ---
SEVERITY:- ABNORMAL ECG - SINUS WITH FREQUENT APCs CAN NOT R/O ATRIAL FIBRILLATION, REC REPEAT EKG INCOMPLETE LEFT BUNDLE BRANCH BLOCK LEFT VENTRICULAR HYPERTROPHY : Confirmed by: Karl Arguelles 05-Feb-2017 09:08:54
== END 2017-02-05 03:39 | disposition short-term general hospital (02) ==
LOC: ER 19:43
DX: R07.9 Chest pain, unspecified (principal); R11.0 Nausea; R06.02 Shortness of breath; E78.00 Pure hypercholesterolemia, unspecified; I10 Essential (primary) hypertension; Z88.6 Allergy status to analgesic agent; Z90.49 Acquired absence of other specified parts of digestive tract; Z90.710 Acquired absence of both cervix and uterus; Z96.653 Presence of artificial knee joint, bilateral
CPT/HCPCS: 93005; 99285; 36415; 82553; 82550; 85025; 85610; 80053; 81001; 84484; 71020; 74176; 93010; A9270 ×5; J3490; S0119